=== PATIENT | female | born 1940 | race Hispanic/Latino ===

== ENCOUNTER 2019-02-04 11:41 | Emergency (ER) | payer MEDICARE ==
[~2019-02-04] VITALS: Ht 152.4 cm; Wt 52.2 kg
[2019-02-04 12:07] LABS: BASOPHILS % 0.2 % (0.0-1.0); EOSINOPHILS # (AUTO) 0.3 (0.0-0.4); EOSINOPHILS % 2.7 % (0.0-6.0); HEMATOCRIT 35.5 % (34.2-44.1); HEMOGLOBIN 11.7 g/dL (12.0-16.0); LYMPHOCYTES # (AUTO) 1.6 (1.0-3.2); MEAN CORPUSCULAR HEMOGLOBIN 28.8 pg (28-32); MEAN CORPUSCULAR VOLUME 87.4 fL (81-99); MONOCYTES # (AUTO) 0.4 (0.2-0.8); MONOCYTES % 4.4 % (4.4-11.3); NEUTROPHILS # (AUTO) 6.8 (2.1-6.9); NEUTROPHILS % 74.4 % (38.7-80.0); PLATELET COUNT 299 x10e3/uL (140-360); RED BLOOD COUNT 4.06 x10e6/uL (3.6-5.1); RED CELL DISTRIBUTION WIDTH 13.5 % (11.7-14.4)
[2019-02-04] MEDS ORDERED: AMLODIPINE BESYL5 MG PO (12:23)
[2019-02-04] MEDS ORDERED: AMOX TR-K CLV1 EAC1 PO (12:23)
[2019-02-04] MEDS ORDERED: TRADJENTA5 MG PO (12:23)
[2019-02-04] MEDS ORDERED: FENOFIBRATE160 MG PO (12:23)
[2019-02-04] MEDS ORDERED: BENAZEPRIL HCL40 MG PO (12:23)
[2019-02-04] MEDS ORDERED: MELOXICAM7.5 MG PO (12:23)
[2019-02-04] MEDS ORDERED: GLIPIZIDE10 MG PO (12:23)
[2019-02-04] MEDS ORDERED: BRIMONIDINE TAR10 ML OU (12:23)
[2019-02-04] MEDS ORDERED: CRESTOR10 MG PO (12:23)
[2019-02-04 12:26] LABS: ANION GAP 14.2 mmol/L (8-16); CREATININE, SERUM 1.21 mg/dL (0.57-1.11); POTASSIUM 4.2 mmol/L (3.5-5.1)
[2019-02-04 12:27] LABS: BILIRUBIN,URINE NEGATIVE (NEGATIVE); CLARITY,URINE CLEAR (CLEAR); COLOR,URINE YELLOW (YELLOW); KETONES,URINE NEGATIVE (NEGATIVE); LEUKOCYTE ESTERASE ,URINE NEGATIVE (NEGATIVE); NITRITE,URINE NEGATIVE (NEGATIVE); PROTEIN,URINE DIPSTICK NEGATIVE (NEGATIVE); URINE UROBILINOGEN 0.2 mg/dL (0.2 - 1)
[2019-02-04 12:38] LABS: WBC,URINE (MAN) 0-5 /HPF (0-5)
[2019-02-04 12:39] LABS: BACTERIA,URINE MODERATE /HPF; EPITHELIAL CELLS,URINE MANY /LPF
[2019-02-04] MEDS ORDERED: SODIUM CHLORIDE 0.9% 1000ML 1,000 ML IV SCH (12:45)
[2019-02-04 13:24] VITALS: BP 143/66
== END 2019-02-04 13:48 | disposition home or self-care (01) ==
LOC: ER 11:41
DX: E86.0 Dehydration (principal); E11.9 Type 2 diabetes mellitus without complications; I10 Essential (primary) hypertension; E78.5 Hyperlipidemia, unspecified
CPT/HCPCS: 36415; 80048; 81001; 85025; 99284; J7030